=== PATIENT | female | born 1995 | race Caucasian/White ===

== ENCOUNTER 2018-08-24 20:13 | Emergency (ER) | payer OTHER ==
[2018-08-24] MEDS: IBUPROFEN 800 MG TAB PO (22:40)
[2018-08-24] MEDS: CYCLOBENZAPRINE 10 MG TAB PO (22:40)
== END 2018-08-24 22:54 | disposition home or self-care (01) ==
LOC: FTE 20:13
DX: S60.463A Insect bite (nonvenomous) of left middle finger, initial encounter (principal); L08.9 Local infection of the skin and subcutaneous tissue, unspecified; W57.XXXA Bitten or stung by nonvenomous insect and other nonvenomous arthropods, initial encounter; Y92.9 Unspecified place or not applicable
CPT/HCPCS: 81025; 99283